=== PATIENT | female | born 1990 ===

== ENCOUNTER 2021-01-18 07:59 | Outpatient (CLI) | payer OTHER | END 2021-01-18 08:21 | disposition home or self-care (01) | LOC: RX STUDY 07:59 → MAMO-SONO 09:15 | PROVIDERS: ATTEND Obstetrics & Gynecology Gynecology | DX: R10.2 Pelvic and perineal pain (principal); M54.5 Low back pain; E55.9 Vitamin D deficiency, unspecified; N60.12 Diffuse cystic mastopathy of left breast; N60.11 Diffuse cystic mastopathy of right breast; N92.0 Excessive and frequent menstruation with regular cycle; N80.1 Endometriosis of ovary; N94.19 Other specified dyspareunia; N94.5 Secondary dysmenorrhea; N84.0 Polyp of corpus uteri; R10.11 Right upper quadrant pain ==

== ENCOUNTER 2023-06-18 08:52 | Outpatient (CLI) | payer OTHER | END 2023-06-18 09:15 | disposition home or self-care (01) | LOC: SONOGRAMA 08:52 | PROVIDERS: ATTEND Obstetrics & Gynecology Gynecology | DX: N84.0 Polyp of corpus uteri (principal) ==

== ENCOUNTER 2024-05-05 09:07 | Outpatient (CLI) | payer OTHER | END 2024-05-05 09:18 | disposition home or self-care (01) | LOC: SONOGRAMA 09:07 | PROVIDERS: ATTEND Obstetrics & Gynecology Gynecology | DX: N84.0 Polyp of corpus uteri (principal) ==